=== PATIENT | male | born 1985 | race Two or more races ===

== ENCOUNTER 2020-12-05 05:50 | Day surgery (SDC) | payer MEDICAID ==
[2020-12-02 10:19] LABS: COVID AG,FIA SOURCE NASOPHARYNGEAL
[~2020-12-05] VITALS: Ht 162.6 cm; Wt 72.3 kg
[2020-12-05] MEDS ORDERED: LIDOCAINE 4% 50 ML SOLUTION TP ONE (05:51)
[2020-12-05] MEDS ORDERED: LIDOCAINE 2% 30 ML JELLY TP ONE (05:51)
[2020-12-05] MEDS ORDERED: ALBUTEROL SULFATE 2.5 MG/0.5 ML NEB SOLUTION NEB ONE (05:51)
[2020-12-05] MEDS ORDERED: BENZOCAINE 20% 50 MCG/SPRAY 57 GM TP ONE (05:51)
[2020-12-05] MEDS ORDERED: SODIUM CHLORIDE 0.9% 1,000 ML ONE (06:04)
[2020-12-05] MEDS ORDERED: SODIUM CHLORIDE 0.9% 1,000 ML IV ONE (06:30)
[2020-12-05] MEDS ORDERED: MIDAZOLAM HCL 2 MG/2 ML VIAL ONE (08:06)
[2020-12-05] MEDS ORDERED: FentaNYL CITRATE PF 100 MCG/2 ML VIAL ONE (08:07)
[2020-12-05] MEDS ORDERED: MethylPREDNISolone SOD SUCC 125 MG/2 ML VIAL IVP ONE (08:45)
[2020-12-05] MEDS ORDERED: OXYGEN THERAPY IH SCH (20:00)
== END 2020-12-05 10:15 | disposition home or self-care (01) ==
LOC: SURGERY 05:50
PROVIDERS: ATTEND Internal Medicine Critical Care Medicine
DX: J38.4 Edema of larynx (principal); B37.0 Candidal stomatitis; F17.210 Nicotine dependence, cigarettes, uncomplicated; Z86.11 Personal history of tuberculosis
CPT/HCPCS: 31623; 31624; 71045; 87015; 87070; 87101; 87206; 87220; 87426; 88108; 88184; 88185; 88312; C9803; J2250; J2930; J3010; J7030; 87205; J7613; Z7610